=== PATIENT | male | born 1990 | race African-American/Black ===

== ENCOUNTER 2018-09-12 06:25 | Emergency (ER) | payer MEDICAID ==
[~2018-09-12] VITALS: Ht 167.6 cm; Wt 90.7 kg
[2018-09-12 06:28] VITALS: BP 137/90
--- NOTE | 2018-09-12 06:28 | NUR ---
TO BED # 2 AMBULATORY
[2018-09-12] MEDS ORDERED: ASPIRIN 81 MG TAB.CHEW PO ONE (06:35)
[2018-09-12] MEDS ORDERED: NACL 0.9% 1,000 ML IV ONE (06:35)
--- NOTE | 2018-09-12 07:09 | NUR ---
PT BIB SELF C/O CHEST PAIN STARTING THIS AM, NON PROVOKED. PT DENEIS N/V/D, SOB. RR EVEN AND UNLABORED. PT IS AWAKE SITTING IN BED, ACTING APPROPRIATE. SKIN IS WARM, DRY, NORMAL COLOR FOR ETHNICITY. PT DENIES PMH. PT STATES HE WAS SITTING DOWN WHEN CP STARTED.
--- NOTE | 2018-09-12 07:13 | NUR ---
REPORT GIVEN TO ANDREW BREWSTER , TRANSFER OF CARE AT THIS TIME.
[2018-09-12 07:27] LABS: BASOPHILS # (AUTO) 0.1 K/uL (0.00-0.22); BASOPHILS % (AUTO) 1.3 % (0.0-2.0); EOSINOPHILS # (AUTO) 0.4 K/uL (0-0.4); EOSINOPHILS % (AUTO) 5.6 % (0.0-4.0); HEMATOCRIT 44.9 % (36-52); HEMOGLOBIN 14.6 g/dL (12.0-18.0); LYMPHOCYTES # (AUTO) 2.6 K/uL (2.0-11.5); LYMPHOCYTES % (AUTO) 36.4 % (20.5-51.1); MEAN CORPUSCULAR HEMOGLOBIN 30 pg (27-31); MEAN CORPUSCULAR HGB CONC 33 g/dL (33-37); MEAN CORPUSCULAR VOLUME 90.6 fL (80-94); MONOCYTES # (AUTO) 0.8 K/uL (0.8-1.0); MONOCYTES % (AUTO) 10.8 % (1.7-9.3); NEUTROPHILS # (AUTO) 3.2 K/uL (1.8-7.7); NEUTROPHILS % (AUTO) 45.9 % (42.2-75.2); PLATELET COUNT (AUTO) 285 K/uL (140-450); RED BLOOD CELL COUNT(AUTO) 4.95 MIL/uL (4.20-6.10); RED CELL DISTRIBUTION WIDTH 14.6 % (11.6-13.7)
[2018-09-12 07:44] LABS: BARBITURATE, URINE NEG. ng/ml (NEG <=200); BENZODIAZEPINE, URINE NEG. ng/mL (NEG <=200); CANNABINOID, URINE POS. ng/mL (NEG <=50); COCAINE, URINE NEG. ng/mL (NEG <=300); OPIATE, URINE NEG. ng/mL (NEG <=2000); PHENCYCLIDINE SCREEN,URINE NEG. ng/mL (NEG <=25)
[2018-09-12 07:51] LABS: ANION GAP 12.4 (8-16); ASPARTATE AMINOTRANSFERASE 41 U/L (15-37); CARBON DIOXIDE 27.6 mmol/L (21-32); CHLORIDE 107 mmol/L (98-107); GLUCOSE 84 mg/dL (74-106); SODIUM SERUM 143 mmol/L (136-145); TOTAL BILIRUBIN 0.4 mg/dL (0.0-1.0)
[2018-09-12 07:52] LABS: ACETAMINOPHEN < 0.5 ug/ml (10-30); ALBUMIN 3.4 g/dL (3.4-5.0); SALICYLATE < 2.8 mg/dL (2.8-20.0)
[2018-09-12 08:19] VITALS: BP 137/90
--- NOTE | 2018-09-12 08:19 | NUR ---
Patient discharged with v/s stable. Written and verbal after care instructions given and explained. Patient alert, oriented and verbalized understanding of instructions. Ambulatory with steady gait. All questions addressed prior to discharge. ID band removed. Patient advised to follow up with PMD. Rx of VESTIRIL given. Patient educated on indication of medication including possible reaction and side effects. Opportunity to ask questions provided and answered.
[2018-09-12 08:38] LABS: CREATININE 1.1 mg/dL (0.7-1.3); GFR ARICAN-AMERICAN 102 mL/min (>90); UREA NITROGEN, BLOOD 9 mg/dL (7-18)
== END 2018-09-12 08:19 | disposition home or self-care (01) ==
LOC: MED 06:25
DX: R07.89 Other chest pain (principal); F41.0 Panic disorder [episodic paroxysmal anxiety]; F41.9 Anxiety disorder, unspecified; F12.10 Cannabis abuse, uncomplicated; F17.200 Nicotine dependence, unspecified, uncomplicated
CPT/HCPCS: 36415; 71045; 80053; 80305; 84484; 85025; 85379; 93005; 99285; G0480; G0482; Q0092

== ENCOUNTER 2018-09-14 05:40 | Emergency (ER) | payer MEDICAID ==
[~2018-09-14] VITALS: Ht 167.6 cm; Wt 90.7 kg
[2018-09-14 05:54] VITALS: BP 139/102
[2018-09-14 05:59] VITALS: BP 139/102
== END 2018-09-14 06:00 | disposition home or self-care (01) ==
LOC: MED 05:40
DX: Z13.89 Encounter for screening for other disorder (principal)
CPT/HCPCS: 82948; 99282

== ENCOUNTER 2019-12-02 11:58 | Emergency (ER) | payer MEDICAID ==
[~2019-12-02] VITALS: Ht 167.6 cm; Wt 68.0 kg
[2019-12-02 12:13] VITALS: BP 150/92
--- NOTE | 2019-12-02 13:10 | NUR ---
PT AMBULATED TO CHAIR
--- NOTE | 2019-12-02 13:38 | NUR ---
Patient discharged with v/s stable. Written and verbal after care instructions given and explained. Patient alert, oriented and verbalized understanding of instructions. Ambulatory with steady gait. All questions addressed prior to discharge. ID band removed. Patient advised to follow up with PMD. Rx of RISPERIDONE, ATIVAN given. Patient educated on indication of medication including possible reaction and side effects. Opportunity to ask questions provided and answered.
== END 2019-12-02 13:38 | disposition home or self-care (01) ==
LOC: MED 11:58
DX: F31.9 Bipolar disorder, unspecified (principal); F20.9 Schizophrenia, unspecified
CPT/HCPCS: 99283

== ENCOUNTER 2020-03-08 16:15 | Emergency (ER) | payer MEDICAID ==
[~2020-03-08] VITALS: Ht 167.6 cm; Wt 91.6 kg
[2020-03-08 16:23] VITALS: BP 117/79
[2020-03-08 17:48] VITALS: BP 114/80
== END 2020-03-08 17:48 | disposition home or self-care (01) ==
LOC: MED 16:15
DX: F41.9 Anxiety disorder, unspecified (principal); F20.9 Schizophrenia, unspecified; F32.9 Major depressive disorder, single episode, unspecified
CPT/HCPCS: 99283

== ENCOUNTER 2020-03-10 10:10 | Emergency (ER) | payer MEDICAID ==
[~2020-03-10] VITALS: Ht 167.6 cm; Wt 81.6 kg
[2020-03-10 10:38] VITALS: BP 140/93
--- NOTE | 2020-03-10 10:45 | NUR ---
AMBULATED TO BED 11
--- NOTE | 2020-03-10 10:49 | NUR ---
dr marie at bedside
[2020-03-10] MEDS ORDERED: IBUPROFEN 600 MG TAB PO ONE (10:55)
[2020-03-10] MEDS ORDERED: ACETAMINOPHEN 325 MG TAB PO ONE (10:55)
--- NOTE | 2020-03-10 11:00 | NUR ---
PT C/O INTERMITTENT BACK PAIN 02/17 X 2 DAYS. 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 DENIES INJURY OR UTI S/S. TAKING TYLENOL WITH NO RELIEF. HOMELESS. SEEN HERE 03/08/20 FOR ANXIETY. MED HX: BIPOLAR, DEPRESSION, SCHIZOAFFWCTIVE, ANXIETY
--- NOTE | 2020-03-10 11:01 | NUR ---
motrin and tylenol po administered by nabor pinto
--- NOTE | 2020-03-10 11:10 | NUR ---
NADR, PAIN 02/17
[2020-03-10 11:11] VITALS: BP 132/87
--- NOTE | 2020-03-10 11:11 | NUR ---
Patient discharged with v/s stable. Written and verbal after care instructions given and explained. Patient alert, oriented and verbalized understanding of instructions. Ambulatory with steady gait. All questions addressed prior to discharge. ID band removed. Patient advised to follow up with PMD. Rx of LIDOCAINE PATCH AND NAPROXEN given. Patient educated on indication of medication including possible reaction and side effects. Opportunity to ask questions provided and answered.
== END 2020-03-10 11:11 | disposition home or self-care (01) ==
LOC: MED 10:10
DX: G89.29 Other chronic pain (principal); M54.9 Dorsalgia, unspecified; F41.9 Anxiety disorder, unspecified; F20.9 Schizophrenia, unspecified; F32.9 Major depressive disorder, single episode, unspecified
CPT/HCPCS: 81002; 99283

== ENCOUNTER 2020-05-09 11:29 | Emergency (ER) | payer MEDICAID ==
[~2020-05-09] VITALS: Ht 167.6 cm; Wt 81.6 kg
--- NOTE | 2020-05-09 11:35 | NUR ---
pt ambulated to bed 5 with steady gait.
--- NOTE | 2020-05-09 11:41 | NUR ---
dr livingston at bedside evaluating pt.
--- NOTE | 2020-05-09 11:50 | NUR ---
requesting medical clearance for mental health clinic; pt aox4 , afibrile, ambulatory with steady gait , calm and quite , well lowe , stated no plans to hurt self and others . hx---bipolar, anxiety, insomnia rx---seroquel
[2020-05-09 12:02] VITALS: BP 135/72
--- NOTE | 2020-05-09 12:02 | NUR ---
Patient discharged with v/s stable. Written and verbal after care instructions given and explained. Patient verbalized understanding. Ambulatory with steady gait. All questions addressed prior to discharge. Advised to follow up with PMD.
== END 2020-05-09 12:02 | disposition home or self-care (01) ==
LOC: MED 11:29
DX: F25.9 Schizoaffective disorder, unspecified (principal); F12.90 Cannabis use, unspecified, uncomplicated
CPT/HCPCS: 99283; 99285

== ENCOUNTER 2020-06-10 13:27 | Emergency (ER) | payer MEDICAID ==
[~2020-06-10] VITALS: Ht 167.6 cm; Wt 90.7 kg
== END 2020-06-10 13:58 | disposition home or self-care (01) ==
LOC: MED 13:27
DX: M79.604 Pain in right leg (principal); F12.90 Cannabis use, unspecified, uncomplicated
CPT/HCPCS: 99282

== ENCOUNTER 2020-06-12 19:25 | Emergency (ER) | payer MEDICAID ==
[~2020-06-12] VITALS: Ht 167.6 cm; Wt 98.4 kg
[2020-06-12 19:32] VITALS: BP 135/67
[2020-06-12 20:25] VITALS: BP 135/67
== END 2020-06-12 20:26 | disposition left against medical advice (07) ==
LOC: MED 19:25
DX: G89.29 Other chronic pain (principal); M79.604 Pain in right leg; Z53.21 Procedure and treatment not carried out due to patient leaving prior to being seen by health care provider

== ENCOUNTER 2020-06-13 10:28 | Emergency (ER) | payer MEDICAID ==
[~2020-06-13] VITALS: Ht 167.6 cm; Wt 97.1 kg
[2020-06-13 10:34] VITALS: BP 138/70
[2020-06-13] MEDS ORDERED: HYDROcodone/APAP 5/325 MG 1 TAB TAB PO ONE (10:55)
[2020-06-13 11:12] VITALS: BP 132/68
== END 2020-06-13 11:12 | disposition home or self-care (01) ==
LOC: MED 10:28
DX: G89.29 Other chronic pain (principal)
CPT/HCPCS: 99283

== ENCOUNTER 2022-03-05 06:49 | Emergency (ER) | payer MEDICAID ==
[~2022-03-05] VITALS: Ht 167.6 cm; Wt 87.7 kg
[2022-03-05 07:06] VITALS: BP 141/77
--- NOTE | 2022-03-05 07:13 | NUR ---
pt ambulatory to bed 08.
--- NOTE | 2022-03-05 07:28 | NUR ---
pt states he would like to come back later at this time. misaeld made aware. lwbs
[2022-03-09] MEDS ORDERED: IBUP-2213 PO (20:07)
[2022-03-09] MEDS ORDERED: DOXY-487 PO (20:07)
[2022-03-09] MEDS ORDERED: CEPH-588 PO (20:07)
== END 2022-03-05 07:28 | disposition left against medical advice (07) ==
LOC: MED 06:49
DX: M79.641 Pain in right hand (principal); Z53.21 Procedure and treatment not carried out due to patient leaving prior to being seen by health care provider

== ENCOUNTER 2022-03-08 02:30 | Emergency (ER) | payer MEDICAID ==
[~2022-03-08] VITALS: Ht 167.6 cm; Wt 95.3 kg
[2022-03-08 02:44] VITALS: BP 132/82
--- NOTE | 2022-03-08 02:51 | NUR ---
Dr. Mcmillan at triage to exam patient.
[2022-03-08] MEDS ORDERED: IBUPROFEN 800 MG TAB PO ONE (02:55)
[2022-03-08] MEDS ORDERED: DOXYCYCLINE 100 MG CAP PO SCH (02:55)
--- NOTE | 2022-03-08 03:05 | NUR ---
Patient taken to X-ray via wheel chair.
[2022-03-08] MEDS ORDERED: DOXY-487 PO (03:43)
[2022-03-08] MEDS ORDERED: IBUP-2213 PO (03:43)
[2022-03-08] MEDS ORDERED: CEPH-588 PO (03:43)
[2022-03-08 04:14] VITALS: BP 132/82
--- NOTE | 2022-03-08 04:14 | NUR ---
Patient discharged with v/s stable. Written and verbal after care instructions given and explained. Patient alert, oriented and verbalized understanding of instructions. Ambulatory with steady gait. All questions addressed prior to discharge. ID band removed. Patient advised to follow up with PMD. Rx of Keflex and Doxy and Ibruprofen given. Patient educated on indication of medication including possible reaction and side effects. Opportunity to ask questions provided and answered.
[2022-03-09] MEDS ORDERED: DOXY-487 PO (20:07)
[2022-03-09] MEDS ORDERED: CEPH-588 PO (20:07)
[2022-03-09] MEDS ORDERED: IBUP-2213 PO (20:07)
== END 2022-03-08 04:14 | disposition home or self-care (01) ==
LOC: MED 02:30
DX: M79.602 Pain in left arm (principal); M79.601 Pain in right arm; M79.89 Other specified soft tissue disorders; X58.XXXA Exposure to other specified factors, initial encounter; Y93.89 Activity, other specified; Y92.89 Other specified places as the place of occurrence of the external cause; Y99.8 Other external cause status
CPT/HCPCS: 73130; 99284; Q0163

== ENCOUNTER 2022-03-11 17:35 | Emergency (ER) | payer MEDICAID ==
[~2022-03-11] VITALS: Ht 167.6 cm; Wt 95.5 kg
[~2022-03-11 17:35] MED LIST: CEPH-588 PO; DOXY-487 PO; IBUP-2213 PO
[2022-03-11 17:59] VITALS: BP 127/78
--- NOTE | 2022-03-11 18:05 | NUR ---
PATIENT AMBULATED TO BED 10 WITH STEADY/EVEN GAIT.
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
--- NOTE | 2022-03-11 19:20 | NUR ---
Report and transfer of care endorsed to ANDREW Jimenes.
[2022-03-11] MEDS ORDERED: NAPR-54 PO (19:21)
--- NOTE | 2022-03-11 19:24 | NUR ---
RECEIVED REPORT FROM ANDREW HERNANDEZ FOR CONTINUITY OF CARE.
[2022-03-11] MEDS ORDERED: KETOROLAC 30 MG/ML VIAL ONE (19:37)
[2022-03-11 19:40] VITALS: BP 124/80
[2022-03-11] MEDS ORDERED: KETOROLAC 30 MG/ML VIAL IM ONE (19:40)
--- NOTE | 2022-03-11 19:40 | NUR ---
Patient refusing pain rx at this time. 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
== END 2022-03-11 19:40 | disposition home or self-care (01) ==
LOC: MED 17:35
DX: S80.11XA Contusion of right lower leg, initial encounter (principal); Z79.899 Other long term (current) drug therapy; W22.8XXA Striking against or struck by other objects, initial encounter; Y93.89 Activity, other specified; Y92.89 Other specified places as the place of occurrence of the external cause; Y99.8 Other external cause status
CPT/HCPCS: 99282; J1885

== ENCOUNTER 2022-11-02 21:38 | Emergency (ER) | payer MEDICAID ==
[~2022-11-02] VITALS: Ht 167.6 cm; Wt 72.6 kg
[~2022-11-02 21:38] MED LIST changes: +NAPR-54 PO
[2022-11-02 21:40] VITALS: BP 143/90
== END 2022-11-03 01:14 | disposition left against medical advice (07) ==
LOC: MED 21:38
DX: M79.604 Pain in right leg (principal); Z53.21 Procedure and treatment not carried out due to patient leaving prior to being seen by health care provider